=== PATIENT | male | born 1950 | race Caucasian/White ===

== ENCOUNTER 2019-07-26 13:42 | Outpatient (CLI) | payer MEDICARE, OTHER ==
--- NOTE | 2019-07-26 14:40 | RAD ---
LEFT SHOULDER THREE VIEWS: HISTORY: Left shoulder impingement syndrome and left shoulder pain. TECHNIQUE: AP, outlet and true AP views of the left shoulder were performed. FINDINGS: There is no evidence of acute fracture or dislocation. There is a moderate spur extending off the hum eral head with joint space narrowing of the glenohumeral joint. No subacromial spur is seen and there is no significant narrowing of the interval between the acromion process and the humeral head. The v isualized left thorax is unremarkable. IMPRESSION: Moderate left shoulder osteoarthritis. POS: MI
== END 2019-07-26 13:43 | disposition home or self-care (01) ==
LOC: BICRAD 13:42
PROVIDERS: ATTEND Family Medicine Addiction Medicine
DX: M25.812 Other specified joint disorders, left shoulder (principal); M19.012 Primary osteoarthritis, left shoulder

== ENCOUNTER 2020-05-28 15:20 | Outpatient (CLI) | payer MEDICARE, OTHER ==
--- NOTE | 2020-05-28 17:02 | MRI ---
MRI LEFT SHOULDER 05/28/20 PROVIDED CLINICAL HISTORY: Left shoulder pain. FINDINGS: There is essentially full thickness, partial width tearing involving the distal conjoined tendon at t he footplate with about 1.3 cm of retraction. The components of the rotator cuff appear otherwise int act. There is increased signal intensity on fluid sensitive sequences involving the interstitium of t he long head biceps tendon and its intra-articular segment compatible with tendinosis and/or partial thickness nonattenuating interstitial tearing. There is an essentially full thickness articular cartilage loss involving the central and posterior a spects of the glenoid and the majority of the humeral head. There is degenerative nondisplaced tearin g involving the superior and posterior glenoid labrum. There is a small glenohumeral joint effusion. There is conspicuous subacromial subdeltoid bursal fluid. Rotator cuff muscular volume appears preserved. There is acromioclavicular joint osteoarthrosis with mild mass effect upon the subjacent supraspinatus. IMPRESSION: 1. Essentially full thickness, partial width mildly retracted tear involving the distal conjoine d tendon at the footplate. 2. 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 3. Acromioclavicular joint osteoarthrosis. POS: [facility]
== END 2020-05-28 15:21 | disposition home or self-care (01) ==
LOC: BICMRI 15:20
PROVIDERS: ATTEND Family Medicine Addiction Medicine
DX: M25.512 Pain in left shoulder (principal); S43.432A Superior glenoid labrum lesion of left shoulder, initial encounter; S46.912A Strain of unspecified muscle, fascia and tendon at shoulder and upper arm level, left arm, initial encounter; M19.012 Primary osteoarthritis, left shoulder